=== PATIENT | female | born 2000 | race Two or more races ===

== ENCOUNTER 2020-05-16 20:05 | Emergency (ER) | payer OTHER ==
[~2020-05-16] VITALS: Ht 149.9 cm; Wt 54.4 kg
[2020-05-17] MEDS ORDERED: INTESTINEX680 M1 PO (04:48)
== END 2020-05-17 04:53 | disposition home or self-care (01) ==
LOC: ER 20:05
DX: O26.892 Other specified pregnancy related conditions, second trimester (principal); R19.7 Diarrhea, unspecified; Z03.818 Encounter for observation for suspected exposure to other biological agents ruled out; Z3A.26 26 weeks gestation of pregnancy

== ENCOUNTER 2020-07-08 17:45 | Inpatient (IN) | payer OTHER ==
[~2020-07-08] VITALS: Ht 149.9 cm; Wt 59.9 kg
[~2020-07-08 17:45] MED LIST: INTESTINEX680 M1 PO
[2020-07-08] MEDS ORDERED: PRENATABS RX T1 EACH PO (18:13)
== END 2020-07-12 16:46 | disposition home or self-care (01) | DRG 833 ==
LOC: LDR 17:45 → OB/GYN 07-09 20:28
PROVIDERS: ADMIT Obstetrics & Gynecology; ATTEND Obstetrics & Gynecology
PROC: BY4FZZZ Ultrasonography of Third Trimester, Single Fetus (ICD-10-PCS; principal; 2020-07-09)
DX: O60.03 Preterm labor without delivery, third trimester (principal); Z3A.33 33 weeks gestation of pregnancy

== ENCOUNTER 2020-08-23 05:35 | Inpatient (IN) | payer OTHER ==
[~2020-08-23] VITALS: Ht 149.9 cm; Wt 2.7 kg
[~2020-08-23 05:35] MED LIST changes: +PRENATABS RX T1 EACH PO
== END 2020-08-26 12:39 | disposition home or self-care (01) | DRG 788 ==
LOC: LDR 05:35 → OB/GYN 05:35 → O/R 17:56 → OB/GYN 19:42
PROVIDERS: ADMIT Obstetrics & Gynecology; ATTEND Obstetrics & Gynecology
PROC: 3E033VJ Introduction of Other Hormone into Peripheral Vein, Percutaneous Approach (ICD-10-PCS; 2020-08-23)
PROC: 4A1HXFZ Monitoring of Products of Conception, Cardiac Rhythm, External Approach (ICD-10-PCS; 2020-08-23)
PROC: 10D00Z1 Extraction of Products of Conception, Low, Open Approach (ICD-10-PCS; principal; 2020-08-23 17:00)
DX: O62.1 Secondary uterine inertia (principal); O64.0XX0 Obstructed labor due to incomplete rotation of fetal head, not applicable or unspecified; O99.824 Streptococcus B carrier state complicating childbirth; O48.0 Post-term pregnancy; Z3A.40 40 weeks gestation of pregnancy; Z37.0 Single live birth; Z20.828 Contact with and (suspected) exposure to other viral communicable diseases

== ENCOUNTER 2022-03-14 07:55 | Outpatient (CLI) | payer OTHER | END 2022-03-14 09:25 | disposition home or self-care (01) | LOC: PRENATAL 07:55 | PROVIDERS: ATTEND Obstetrics & Gynecology Maternal & Fetal Medicine | DX: O35.0XX0 Maternal care for (suspected) central nervous system malformation in fetus, not applicable or unspecified (principal); O35.3XX0 Maternal care for (suspected) damage to fetus from viral disease in mother, not applicable or unspecified; O34.219 Maternal care for unspecified type scar from previous cesarean delivery; O26.879 Cervical shortening, unspecified trimester; Z3A.22 22 weeks gestation of pregnancy ==

== ENCOUNTER 2022-04-11 12:11 | Outpatient (CLI) | payer OTHER | END 2022-04-11 14:27 | disposition home or self-care (01) | LOC: PRENATAL 12:11 | PROVIDERS: ATTEND Obstetrics & Gynecology Maternal & Fetal Medicine | DX: O26.849 Uterine size-date discrepancy, unspecified trimester (principal); O34.219 Maternal care for unspecified type scar from previous cesarean delivery; O26.879 Cervical shortening, unspecified trimester; Z3A.26 26 weeks gestation of pregnancy ==